=== PATIENT | female | born 1955 | race African-American/Black ===

== ENCOUNTER 2019-02-12 08:04 | Emergency (ER) | payer OTHER, BC ==
[2019-02-12] MEDS ORDERED: MORPHINE 4 MG/ML SYR ONE ×2 (08:47→10:17)
[2019-02-12] MEDS ORDERED: ONDANSETRON 4 MG/2 ML VIAL ONE (08:47)
--- NOTE | 2019-02-12 09:41 | RAD REPORT ---
EXAM DESCRIPTION: RAD - Shoulder Right 2 View - 02/12/2019 8:53 am CLINICAL HISTORY: Right shoulder pain FINDINGS: An avulsion fracture involves the lateral aspect of the right humeral. No dislocation
--- NOTE | 2019-02-12 09:50 | EDPHYS ---
Physician Documentation [facility] Name: Brigida Rocha Age: 63 yrs Sex: Female : 1955 Arrival Date: 02/12/2019 Time: 08:05 Bed 16 Private MD: ED Physician Demetri Mora HPI: 02/12 09:41 This 63 yrs old Black Female presents to ER via EMS with complaints of Shoulder Injury. kdr 09:41 The patient or guardian complains of a crush injury, decreased range of motion, pain, kdr that is acute, tenderness. right shoulder. Context: The problem was sustained at work, resulted from a fall, while walking, The patient experiences decreased range of motion, The patient reports no obvious deformity. Onset: The symptoms/episode began/occurred acutely, just prior to arrival. Modifying factors: the symptoms are alleviated by remaining still, The symptoms are aggravated by movement, rotation of arm. Associated signs and symptoms: The patient has no apparent associated signs or symptoms. Severity of symptoms: At their worst the symptoms were moderate, in the emergency department the symptoms are unchanged. The patient has not experienced similar symptoms in the past. The patient has not recently seen a physician. Historical: - Allergies: 08:10 Codeine; hb - PMHx: 08:10 Hypertension; hb - PSHx: 08:10 hemorrhoids; Hysterectomy; hb - Immunization history:: Adult Immunizations up to date. - Social history:: Smoking status: Patient/guardian denies using tobacco. - Ebola Screening: : No symptoms or risks identified at this time. ROS: 09:41 Constitutional: Negative for fever, chills, and weight loss, Eyes: Negative for injury, kdr pain, redness, and discharge, ENT: Negative for injury, pain, and discharge, Neck: Negative for injury, pain, and swelling, Cardiovascular: Negative for chest pain, palpitations, and edema, Respiratory: Negative for shortness of breath, cough, wheezing, and pleuritic chest pain, Abdomen/GI: Negative for abdominal pain, nausea, vomiting, diarrhea, and constipation, Back: Negative for injury and pain, : Negative for injury, bleeding, discharge, and swelling, Skin: Negative for injury, rash, and discoloration, Neuro: Negative for headache, weakness, numbness, tingling, and seizure activity. Psych: Negative for depression, anxiety, suicide ideation, homicidal ideation, and hallucinations, Allergy/Immunology: Negative for hives, rash, and allergies, Endocrine: Negative for neck swelling, polydipsia, polyuria, polyphagia, and marked weight changes, Hematologic/Lymphatic: Negative for swollen nodes, abnormal bleeding, and unusual bruising. 09:41 MS/extremity: Positive for injury or acute deformity, decreased range of motion, pain, tenderness, of the anterior aspect of right shoulder and right bicep. Exam: 09:41 Constitutional: This is a well developed, well nourished patient who is awake, alert, kdr and in no acute distress. Head/Face: Normocephalic, atraumatic. Eyes: Pupils equal round and reactive to light, extra-ocular motions intact. Lids and lashes normal. Conjunctiva and sclera are non-icteric and not injected. Cornea within normal limits. Periorbital areas with no swelling, redness, or edema. Neck: Trachea midline, no thyromegaly or masses palpated, and no cervical lymphadenopathy. Supple, full range of motion without nuchal rigidity, or vertebral point tenderness. No Meningismus. Chest/axilla: Normal chest wall appearance and motion. Nontender with no deformity. No lesions are appreciated. Cardiovascular: Regular rate and rhythm with a normal S1 and S2. No gallops, murmurs, or rubs. Normal PMI, no JVD. No pulse deficits. Respiratory: Lungs have equal breath sounds bilaterally, clear to auscultation and percussion. No rales, rhonchi or wheezes noted. No increased work of breathing, no retractions or nasal flaring. Abdomen/GI: Soft, non-tender, with normal bowel sounds. No distension or tympany. No guarding or rebound. No evidence of tenderness throughout. Back: No spinal tenderness. No costovertebral tenderness. Full range of motion. Skin: Warm, dry with normal turgor. Normal color with no rashes, no lesions, and no evidence of cellulitis. Neuro: Awake and alert, GCS 15, oriented to person, place, time, and situation. Cranial nerves II-XII grossly intact. Motor strength 5/5 in all extremities. Sensory grossly intact. Cerebellar exam normal. Normal gait. Psych: Awake, alert, with orientation to person, place and time. Behavior, mood, and affect are within normal limits. 09:41 Musculoskeletal/extremity: Extremities: grossly normal except: noted in the anterior aspect of right shoulder, right bicep, posterior aspect of right shoulder and right tricep: ROM: limited active range of motion, limited passive range of motion, Circulation is intact in all extremities. Sensation intact. Vital Signs: 08:10 BP 161 / 63; Pulse 74; Resp 16; Temp 97.8; Pulse Ox 100% on R/A; Weight 115.67 kg; hb Height 5 ft. 5 in. (165.10 cm); Pain 10/10; 09:00 BP 148 / 66; Pulse 70; Resp 15; Pulse Ox 100% on R/A; Pain 10/10; hb 10:00 BP 169 / 92; Pulse 71; Resp 16 S; Pulse Ox 100% on R/A; Pain 8/10; ca1 08:10 Body Mass Index 42.43 (115.67 kg, 165.10 cm) hb MDM: 09:41 Data reviewed: vital signs, nurses notes, radiologic studies. Counseling: I had a kdr detailed discussion with the patient and/or guardian regarding: the historical points, exam findings, and any diagnostic results supporting the discharge/admit diagnosis, radiology results, the need for outpatient follow up. 09:49 Patient medically screened. kdr 02/12 08:32 Order name: Shoulder Right (2 View) XRAY; Complete Time: 09:49 kdr Administered Medications: 09:03 Drug: morphine 4 mg Route: IVP; Site: left antecubital; hb 10:25 Follow up: Response: No adverse reaction; Pain is unchanged, physician notified; RASS: ca1 Alert and Calm (0) 09:03 Drug: Zofran 4 mg Route: IVP; Site: left antecubital; hb 10:25 Follow up: Response: No adverse reaction; Nausea is decreased ca1 10:20 Drug: morphine 4 mg {Note: RASS - 0.} Route: IVP; Site: left antecubital; ca1 10:57 Follow up: Response: No adverse reaction; Pain is decreased; RASS: Alert and Calm (0) ca1 Disposition: 02/12/19 09:49 Discharged to Home. Impression: Unspecified nondisplaced fracture of surgical neck of right humerus. - Condition is Stable. - Discharge Instructions: Humerus Fracture Treated With Immobilization. - Prescriptions for Tramadol 50 mg Oral Tablet - take 1 tablet by ORAL route every 8 hours As needed as needed; 18 tablet. - Medication Reconciliation Form, Thank You Letter, Prescription Opioid Use, Work release form form. - Follow up: Private Physician; When: 2 - 3 days; Reason: Further diagnostic work-up, Recheck today's complaints, Continuance of care, Re-evaluation by your physician. Follow up: Memo Bryant MD; When: 2 - 3 days; Reason: Further diagnostic work-up, Recheck today's complaints, Continuance of care, Re-evaluation by your physician. - Problem is new. - Symptoms have improved. Signatures: Dispatcher [employer] EDMS Demetri Mora MD MD kdr Roszak, Josh, PA PA [id number] Yulissa Bui RN RN Rose Spivey RN RN ca1 Corrections: (The following items were deleted from the chart) 10:58 09:49 02/12/2019 09:49 Discharged to Home. Impression: Unspecified nondisplaced ca1 fracture of surgical neck of right humerus. Condition is Stable. Forms are Medication Reconciliation Form, Thank You Letter, Antibiotic Education, Prescription Opioid Use. Follow up: Private Physician; When: 2 - 3 days; Reason: Further diagnostic work-up, Recheck today's complaints, Continuance of care, Re-evaluation by your physician. Follow up: Memo Bryant; When: 2 - 3 days; Reason: Further diagnostic work-up, Recheck today's complaints, Continuance of care, Re-evaluation by your physician. Problem is new. Symptoms have improved. kdr
--- NOTE | 2019-02-12 09:50 | ER ---
Nurse's Notes [facility] Name: Brigida Rocha Age: 63 yrs Sex: Female : 1955 Arrival Date: 02/12/2019 Time: 08:05 Bed 16 Private MD: Diagnosis: Unspecified nondisplaced fracture of surgical neck of right humerus Presentation: 02/12 08:06 Presenting complaint: Slipped on gravel while walking up incline, landed on right side, hb c/o right shoulder pain 01/22. Negative LOC. Denies other injuries. Transition of care: patient was not received from another setting of care. Onset of symptoms was February 12, 2019. Risk Assessment: Do you want to hurt yourself or someone else? Patient reports no desire to harm self or others. Initial Sepsis Screen: Does the patient meet any 2 criteria? No. Patient's initial sepsis screen is negative. Does the patient have a suspected source of infection? No. Patient's initial sepsis screen is negative. Care prior to arrival: Right arm in sling. 08:06 Method Of Arrival: EMS: [email or web address] hb 08:06 Acuity: MICHELLE 4 hb Triage Assessment: 08:11 General: Appears in no apparent distress. uncomfortable, Behavior is calm, cooperative. hb Pain: Pain currently is 10 out of 10 on a pain scale. Neuro: Level of Consciousness is awake, alert, obeys commands, Oriented to person, place, time, situation. Cardiovascular: Capillary refill < 3 seconds Patient's skin is warm and dry. Respiratory: Airway is patent Respiratory effort is even, unlabored, Respiratory pattern is regular, symmetrical. Musculoskeletal: Reports right shoulder pain 10. Historical: - Allergies: 08:10 Codeine; hb - PMHx: 08:10 Hypertension; hb - PSHx: 08:10 hemorrhoids; Hysterectomy; hb - Immunization history:: Adult Immunizations up to date. - Social history:: Smoking status: Patient/guardian denies using tobacco. - Ebola Screening: : No symptoms or risks identified at this time. Screenin:12 Abuse screen: Denies threats or abuse. Denies injuries from another. Nutritional hb screening: No deficits noted. Tuberculosis screening: No symptoms or risk factors identified. Fall Risk None identified. Assessment: 08:12 General: see triage assessment . hb 09:00 Reassessment: Patient appears in no apparent distress at this time. Patient and/or hb family updated on plan of care and expected duration. Pain level reassessed. Patient is alert, oriented x 3, equal unlabored respirations, skin warm/dry/pink. 10:06 Reassessment: Patient appears in no apparent distress at this time. Patient is alert, ca1 oriented x 3, equal unlabored respirations, skin warm/dry/pink. Dr. Mora at bedside. Vital Signs: 08:10 BP 161 / 63; Pulse 74; Resp 16; Temp 97.8; Pulse Ox 100% on R/A; Weight 115.67 kg; hb Height 5 ft. 5 in. (165.10 cm); Pain 10/10; 09:00 BP 148 / 66; Pulse 70; Resp 15; Pulse Ox 100% on R/A; Pain 10/10; hb 10:00 BP 169 / 92; Pulse 71; Resp 16 S; Pulse Ox 100% on R/A; Pain 8/10; ca1 08:10 Body Mass Index 42.43 (115.67 kg, 165.10 cm) hb ED Course: 08:05 Patient arrived in ED. hb 08:07 Triage completed. hb 08:10 Arm band placed on. hb 08:12 Patient has correct armband on for positive identification. Bed in low position. Call light in reach. Side rails up X 1. 08:14 Demetri Mora MD is Attending Physician. kdr 08:41 Yulissa Bui, RN is Primary Nurse. hb 08:52 Inserted saline lock: 22 gauge in left antecubital area, using aseptic technique. hb 08:53 Shoulder Right (2 View) XRAY In Process Unspecified. EDMS 09:45 Memo Bryant MD is Referral Physician. kdr 10:26 No provider procedures requiring assistance completed. Sling applied to right arm. ca1 10:40 IV discontinued, intact, bleeding controlled, No redness/swelling at site. Pressure ca1 dressing applied. Administered Medications: 09:03 Drug: morphine 4 mg Route: IVP; Site: left antecubital; hb 10:25 Follow up: Response: No adverse reaction; Pain is unchanged, physician notified; RASS: ca1 Alert and Calm (0) 09:03 Drug: Zofran 4 mg Route: IVP; Site: left antecubital; hb 10:25 Follow up: Response: No adverse reaction; Nausea is decreased ca1 10:20 Drug: morphine 4 mg {Note: RASS - 0.} Route: IVP; Site: left antecubital; ca1 10:57 Follow up: Response: No adverse reaction; Pain is decreased; RASS: Alert and Calm (0) ca1 Outcome: 09:49 Discharge ordered by . kdr 10:40 Discharged to home via wheelchair, with friend. ca1 10:40 Condition: stable 10:40 Discharge instructions given to patient, Instructed on discharge instructions, follow up and referral plans. medication usage, Demonstrated understanding of instructions, follow-up care, medications, Prescriptions given X 1. 10:58 Patient left the ED. ca1 Signatures: Dispatcher [employer] EDMS Demetri Mora MD MD [facility] Yulissa Bui, RN RN Acob, Rose, RN RN ca1 Corrections: (The following items were deleted from the chart) 09:40 09:00 BP 148 / 66; Pulse 70bpm; Resp 15bpm; Pulse Ox 100% RA; Pain 3/10; hb hb
[2019-02-12 11:23] VITALS: BP 169/92; TEMP 97.8; O2SAT 100
== END 2019-02-12 10:58 | disposition home or self-care (01) ==
LOC: ER 08:04
DX: S42.294A Other nondisplaced fracture of upper end of right humerus, initial encounter for closed fracture (principal); W01.0XXA Fall on same level from slipping, tripping and stumbling without subsequent striking against object, initial encounter; Y93.9 Activity, unspecified; Y92.89 Other specified places as the place of occurrence of the external cause; Y99.0 Civilian activity done for income or pay; Z88.6 Allergy status to analgesic agent
CPT/HCPCS: 73030; 96375; 96374; 99284; J2405